=== PATIENT | female | born 1965 | race Asian ===

== ENCOUNTER 2016-04-04 08:26 | Emergency (ER) | payer OTHER ==
--- NOTE | 2016-04-04 08:51 | ECGEPIP ---
Stationary ECG Study [facility] - ED Test Date: 2016-04-04 Pat Name: MIGUELINA RDZ Department: Room: - Gender: F Nurse Assessor: gareth : 1965 Requested By: Kristan Correia Order Number: [id number] Reading MD: Caesar Renee Measurements Intervals [place] Rate: 63 P: 47 OR: 179 QRS: -31 QRSD: 91 T: 55 QT: 408 QTc: 419 Interpretive Statements SINUS RHYTHM LEFT AXIS DEVIATION NO PRIORS Electronically Signed On 04-04-2016 8:51:04 EST by Caesar Renee
[2016-04-04 08:59] LABS: BASO # 0.1 K/mm3 (0.0-0.2); BASO % 1.4 % (0.0-1.0); EOS # 0.1 K/mm3 (0.0-0.50); EOS % 2.8 % (0.0-3.0); LARGE UNSTAINED CELL # 0.2 K/mm3 (0.0-0.4); LARGE UNSTAINED CELL % 3.6 % (0.0-4.0); LYMPH # 2.3 K/mm3 (1.5-4.5); LYMPH % 45.6 % (24.0-44.0); MEAN CORPUSCULAR HEMOGLOBIN 31.3 pg (27.0-33.0); MONO # 0.2 K/mm3 (0.0-0.8); MONO % 4.6 % (0.0-5.0); NEUTROPHILS # 2.1 K/mm3 (1.8-7.7); PLATELET COUNT, AUTOMATED 288 k/mm3 (150-450); RED CELL DISTRIBUTION WIDTH 11.8 % (11.5-14.5)
--- NOTE | 2016-04-04 09:19 | REP ---
Portable chest x-ray: Single view. History: Chest pain. No comparison chest x-ray. Findings: EKG monitoring electrodes overlie the chest. Lungs are well inflated and clear. Heart size is normal. Aorta is slightly tortuous. Pulmonary vasculature is not increased. No bony abnormality is appreciated. Impression: No acute disease. Signed by Chris Vasquez MD 04/04/2016 01:41 P
[2016-04-04 09:23] LABS: ANION GAP 6 MEQ/L (8-16); BLOOD UREA NITROGEN 10 MG/DL (7-18); CALCIUM LEVEL 9.5 MG/DL (8.5-10.1); CARBON DIOXIDE LEVEL 29 MEQ/L (21-32); CHLORIDE LEVEL 111 MEQ/L (98-107); CREATININE FOR GFR 0.89 MG/DL (0.55-1.02); GLOMERULAR FILTRATION RATE > 60.0 (>51); GLUCOSE, FASTING 94 MG/DL (70-105); POTASSIUM SERUM 4.2 MEQ/L (3.5-5.1); SODIUM LEVEL 146 MEQ/L (136-145)
[2016-04-04] MEDS ORDERED: GI COCKTAIL 50ML BTL(HYOSCYAMINE/MAALOX/LIDOCAINE VISCOUS)(1:3:1) As Ordered ONE (10:54)
--- NOTE | 2016-04-04 11:48 | EDDOCDS ---
Physician Documentation [facility] Name: Jhonatan Houser Age: 50 yrs Sex: Female : 1965 Arrival Date: 04/04/2016 Time: 08:26 Bed 7 Private MD: Disposition: 04/04 10:57 I have independently interviewed and examined the patient, and I agree with the sd1 investigation, diagnosis and treatment plan as documented by the Resident. Disposition: 04/04/16 11:28 Discharged to Home/Self Care. Impression: Chest pain, unspecified. - Condition is Stable. - Medication Reconciliation, Local Pharmacy Hours form. - Follow up: Edenilson Hidalgo; When: Call to arrange an appointment; Reason: Recheck today's complaints. - Problem is new. - Symptoms are unchanged. - Notes: You were evaluated in the emergency department for chest pain. Your EKG, chest x-ray,and laboratory results were essentially within normal limits. Please follow-up with Dr. Hidalgo. Historical: - Allergies: Aspirin; - Home Meds: 1. gabapentin 300 mg Oral cap 1 cap as needed 2. hydrocodone-acetaminophen 5-325 mg Oral tab 1 tab every 4 hours - PMHx: Chronic Back pain; - PSHx: Breast Augmentation; Carpal Tunnel Repair- Right; Knee Arthroplasty, Left; back surgery; Colon Resection; - Social history: No barriers to communication noted, The patient speaks fluent [place]ian, Speaks appropriately for age, Smoking status: Patient uses tobacco products, heavy tobacco smoker. - Family history: Not pertinent. - : The pt / caregiver states he / she is not on anticoagulants. Home medication list is obtained from the patient. - Exposure Risk Screening:: None identified. 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 6 in. (167.64 cm); 08:54 Pulse 64 MON; Pulse Ox 100% ; pml 08:54 BP 148 / 81 (auto/); pml 09:09 Pulse 60 MON; Pulse Ox 98% ; pml 09:09 BP 146 / 85 (auto/); pml 09:24 Pulse 60 MON; Pulse Ox 100% ; pml 09:24 BP 145 / 87 (auto/); pml 09:39 Pulse 60 MON; Pulse Ox 100% ; pml 09:39 BP 152 / 85 (auto/); pml 09:54 Pulse 60 MON; Pulse Ox 100% ; pml 09:54 BP 145 / 87 (auto/); pml 10:17 BP 148 / 88 (auto/); pml 10:18 Pulse 66 MON; Pulse Ox 96% ; pml 10:24 Pulse 58 MON; Pulse Ox 98% ; pml 10:24 BP 137 / 89 (auto/); pml 10:39 Pulse 56 MON; Pulse Ox 96% ; pml 10:39 BP 143 / 94 (auto/); pml 10:54 Pulse 60 MON; Pulse Ox 100% ; pml 10:54 BP 138 / 87 (auto/); pml 11:09 Pulse 56 MON; Pulse Ox 97% ; pml 11:09 BP 135 / 91 (auto/); pml 11:24 Pulse 64 MON; Pulse Ox 98% ; pml 11:24 BP 165 / 98 (auto/); pml 11:39 Pulse 66 MON; Pulse Ox 96% ; pml 11:39 BP 185 / 89 (auto/); pml 11:44 BP 157 / 72; Pulse 62; Resp 18; Temp 97.1; Pulse Ox 98% on R/A; pml 08:41 Body Mass Index 24.53 (68.95 kg, 167.64 cm) [facility] MDM: 08:29 ECG WITH READING ER PHYS+CARDIAG ordered. EDMS 08:30 Copy Director/Pulse Ox/q 30 min VS ordered. sd1 08:30 IV Saline Lock ordered. sd1 08:30 Rhythm Strip to chart ordered. sd1 08:30 Undress patient appropriately for examination ordered. sd1 08:32 portable chest Ordered. EDMS 08:32 Basic Metabolic Profile Ordered. EDMS 08:32 CBC with Diff Ordered. EDMS 08:32 Cardiac Injury Profile Ordered. EDMS 08:32 Troponin Ordered. EDMS 09:20 CBC with Diff Reviewed. jo4 09:20 EKG-ADULT Reviewed. jo4 09:27 Cardiac Injury Profile Reviewed. jo4 09:27 Troponin Reviewed. jo4 09:28 Basic Metabolic Profile Reviewed. sd1 09:29 Recheck B/P ordered. sd1 09:30 D-Dimer Quant Ordered. EDMS 09:56 portable chest Reviewed. jo4 10:48 oxyCODONE-acetaminophen 5 mg-325 mg 1 tabs PO once ordered. sd1 10:51 GI Cocktail - (Alum-Mag Hydroxide-Simeth 30 ml, Lidocaine 10 ml, Hyoscyamine 10 ml) PO sd1 once; Pre-mixed 50mL unit dose ordered. 10:51 ED course: 50 yo female presents reporting constant chest pressure retrosternal x 1 sd1 week - nothing increases or decreases pain denies SOB though reports sometimes she has to take deep breaths no fever/chills no LE edema exam well appearing sleeping in ED though easily arousal ? GI etiology think cardiac less likely EKG fine trop negative less likely PE - low clinical suspicion - check d-dimer no ASA given bc allergic lungs CTAb heart RRR no murmur, rub or gallop abd benign ext without c/c/e. 10:55 D-Dimer Quant Reviewed. sd1 11:20 Financial registration complete. mm15 11:27 [facility] Payment Agreement was scanned into [employer] and attached to record. mm15 Administered Medications: 10:51 Not Given (other used): oxyCODONE-acetaminophen 5 mg-325 mg 1 tabs PO once sd1 10:56 Drug: GI Cocktail - (Alum-Mag Hydroxide-Simeth Suspension 225 mg-200 mg-25 mg/5 mL 30 pml ml, Lidocaine Liquid 2 % 10 ml, Hyoscyamine Liquid 10 ml) Route: PO; 11:10 Follow up: Response: No significant change. pml Signatures: Dispatcher [employer] EDLA Kristan Correia MD MD sd1 Brady Vines RN RN dy Quay, Paulina, RN RN pml McGrath, Marlynn mm15 Sheila Marcum DO DO jo4 The chart was reviewed and I authenticate all verbal orders and agree with the evaluation and treatment provided.Attachments: 11:27 [facility] Payment Agreement mm15 MTDD
--- NOTE | 2016-04-04 11:48 | EDDOCDS ---
Nurse's Notes [facility] Name: Miguelina Houser Age: 50 yrs Sex: Female : 1965 Arrival Date: 04/04/2016 Time: 08:26 Bed 7 Private MD: Diagnosis: Chest pain, unspecified Presentation: 04/04 08:30 Adult Sepsis Screening: The patient does not have new or worsening altered mentation. pml Patient's respiratory rate is less than 22. Systolic blood pressure is greater than 100. Patient has a qSOFA score of 0- Negative Sepsis Screen. 08:32 Presenting complaint: Patient states: chest pain for 1 week. denies SOB. denies hx of dy cardiac disorders. pain has not changed during this week. Aspirin was not taken prior to arrival. Suicide/Homicide risk assessment- the patient denies having any suicidal and/or homicidal ideations and does not present with any other emotional, behavioral or mental health complaints. 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 Transition of care: patient was not received from another setting of care. 08:32 Acuity: LEXI Level 2 dy 08:32 Method Of Arrival: Walkin/Carried/Asstd dy Triage Assessment: 11:46 HIV screening NA for this visit Offered previously. Cardiovascular: Chest pain is pml described as vague, radiates Does not radiate. episodes are intermittent began 1 week ago. HOB GRINDER: 11:46 unknown pml Historical: - Allergies: Aspirin; - Home Meds: 1. gabapentin 300 mg Oral cap 1 cap as needed 2. hydrocodone-acetaminophen 5-325 mg Oral tab 1 tab every 4 hours - PMHx: Chronic Back pain; - PSHx: Breast Augmentation; Carpal Tunnel Repair- Right; Knee Arthroplasty, Left; back surgery; Colon Resection; - Social history: No barriers to communication noted, The patient speaks fluent Malay, Speaks appropriately for age, Smoking status: Patient uses tobacco products, heavy tobacco smoker. - Family history: Not pertinent. - : The pt / caregiver states he / she is not on anticoagulants. Home medication list is obtained from the patient. - Exposure Risk Screening:: None identified. Screenin:42 Screening information is obtained from the patient. Fall risk: No risks identified. pml Assistance ADL's: requires no assistance with activities of daily living. Abuse/DV Screen: The patient / caregiver reports he/she is: not in a situation that causes fear, pain or injury. Nutritional screening: No deficits noted. Advance Directives: There is no active DNR order. home support is adequate. Assessment: 08:42 General: Appears in no apparent distress, comfortable, Behavior is appropriate for age, pml cooperative. Pain: Location: chest and headache Pain currently is 3 out of 10 on a pain scale. Pain: Quality of pain is described as heavy, pressure. Neurological: Level of Consciousness is awake, alert, Oriented to person, place, time. Cardiovascular: Capillary refill < 3 seconds Rhythm is sinus rhythm No ectopy. Respiratory: Airway is patent Respiratory effort is even, unlabored, Respiratory pattern is regular, symmetrical, Breath sounds are clear bilaterally. GI: Abdomen is non- distended. Derm: Skin is pink, warm & dry. 09:26 General: resting on stretcher, resps easy and unlabored, skin p/w/d. sinus rhythm on pml monitor. . 10:57 General: Appears in no apparent distress, Behavior is appropriate for age, cooperative. pml Pain: Location: chest Pain currently is 3 out of 10 on a pain scale. Neurological: Level of Consciousness is awake, alert, Oriented to person, place, time. Cardiovascular: Capillary refill < 3 seconds Rhythm is sinus rhythm No ectopy. Respiratory: Airway is patent Respiratory effort is even, unlabored. Derm: Skin is pink, warm & dry. 11:43 General: Appears in no apparent distress, comfortable, Behavior is appropriate for age, pml cooperative. Pain: Location: chest Pain currently is 2 out of 10 on a pain scale. Neurological: Level of Consciousness is awake, alert, Oriented to person, place, time. Cardiovascular: Capillary refill < 3 seconds. Respiratory: Airway is patent Respiratory effort is even, unlabored. Derm: Skin is pink, warm & dry. Vital Signs: 08:41 BP 190 / 110; Pulse 67; Resp 20; Temp 97.6; Pulse Ox 100% ; Weight 68.95 kg; Height 5 jlf ft. 6 in. (167.64 cm); 08:54 Pulse 64 MON; Pulse Ox 100% ; pml 08:54 BP 148 / 81 (auto/); pml 09:09 Pulse 60 MON; Pulse Ox 98% ; pml 09:09 BP 146 / 85 (auto/); pml 09:24 Pulse 60 MON; Pulse Ox 100% ; pml 09:24 BP 145 / 87 (auto/); pml 09:39 Pulse 60 MON; Pulse Ox 100% ; pml 09:39 BP 152 / 85 (auto/); pml 09:54 Pulse 60 MON; Pulse Ox 100% ; pml 09:54 BP 145 / 87 (auto/); pml 10:17 BP 148 / 88 (auto/); pml 10:18 Pulse 66 MON; Pulse Ox 96% ; pml 10:24 Pulse 58 MON; Pulse Ox 98% ; pml 10:24 BP 137 / 89 (auto/); pml 10:39 Pulse 56 MON; Pulse Ox 96% ; pml 10:39 BP 143 / 94 (auto/); pml 10:54 Pulse 60 MON; Pulse Ox 100% ; pml 10:54 BP 138 / 87 (auto/); pml 11:09 Pulse 56 MON; Pulse Ox 97% ; pml 11:09 BP 135 / 91 (auto/); pml 11:24 Pulse 64 MON; Pulse Ox 98% ; pml 11:24 BP 165 / 98 (auto/); pml 11:39 Pulse 66 MON; Pulse Ox 96% ; pml 11:39 BP 185 / 89 (auto/); pml 11:44 BP 157 / 72; Pulse 62; Resp 18; Temp 97.1; Pulse Ox 98% on R/A; pml 08:41 Body Mass Index 24.53 (68.95 kg, 167.64 cm) [facility] ED Course: 08:27 Patient visited by Veronika Marsh. mm15 08:27 Patient moved to Waiting mm15 08:28 Patient moved to 7 dy 08:33 Sheila Marcum DO is PHCP. jo4 08:33 Kristan Correia MD is Attending Physician. jo4 08:34 Triage Initiated dy 08:34 EKG done. (by ED staff). Reviewed by Kristan Correia MD. jlf 08:41 Patient visited by Raghu Abraham PCA. jlf 08:42 Patient visited by Raghu Abraham PCA. jlf 08:42 The patient / caregiver is instructed regarding the plan of care and ED course. Patient pml has correct armband on for positive identification. Placed in gown. Bed in low position. Call light in reach. Side rails up X2. teletypesetter monitor on. Pulse ox on. NIBP on. 08:42 Inserted peripheral IV: 20gauge IV in right antecubital area and blood collected. dy Patient tolerated the procedure well. 08:44 Patient visited by Lashon Cazares,CRISTY. pml 08:53 Lashon Cazares,CRISTY is Primary Nurse. jc4 09:06 EKG-ADULT Returned. EDMS 09:17 Patient visited by Raghu Abraham PCA. jlf 09:26 Patient visited by Lashon Cazares RN. pml 09:28 Patient visited by Kristan Correia MD. sd1 09:31 Patient visited by Lashon Cazares RN. pml 09:53 portable chest Returned. EDMS 09:56 Patient visited by Raghu Abraham PCA. jlf 09:57 Patient visited by Lashon Cazares RN. pml 10:57 Patient visited by Lashon Cazares,CRISTY. pml 11:27 Edenilson Hidalgo is Referral Physician. jo4 11:27 [facility] Payment Agreement was scanned into [employer] and attached to record. mm15 11:44 Discontinued lock intact, bleeding controlled, pressure dressing applied, No pml redness/swelling at site. No procedures done that require assistance. Administered Medications: 10:51 Not Given (other used): oxyCODONE-acetaminophen 5 mg-325 mg 1 tabs PO once sd1 10:56 Drug: GI Cocktail - (Alum-Mag Hydroxide-Simeth Suspension 225 mg-200 mg-25 mg/5 mL 30 pml ml, Lidocaine Liquid 2 % 10 ml, Hyoscyamine Liquid 10 ml) Route: PO; 11:10 Follow up: Response: No significant change. pml Order Results: Lab Order: Basic Metabolic Profile; SPEC'M 04/04/16 08:44 Test: GLUCOSE, FASTING; Value: 94; Range: 70-105; Units: MG/DL; Status: F Test: BLOOD UREA NITROGEN; Value: 10; Range: 7-18; Units: MG/DL; Status: F Test: CREATININE FOR GFR; Value: 0.89; Range: 0.55-1.02; Units: MG/DL; Status: F Test: GLOMERULAR FILTRATION RATE; Value: > 60.0; Range: >51; Status: F Test: SODIUM LEVEL; Value: 146; Range: 136-145; Abnormal: Above high normal; Units: MEQ/L; Status: F Test: POTASSIUM SERUM; Value: 4.2; Range: 3.5-5.1; Units: MEQ/L; Status: F Test: CHLORIDE LEVEL; Value: 111; Range: 98-107; Abnormal: Above high normal; Units: MEQ/L; Status: F Test: CARBON DIOXIDE LEVEL; Value: 29; Range: 21-32; Units: MEQ/L; Status: F Test: ANION GAP; Value: 6; Range: 8-16; Abnormal: Below low normal; Units: MEQ/L; Status: F Test: CALCIUM LEVEL; Value: 9.5; Range: 8.5-10.1; Units: MG/DL; Status: F Test Note: ; Units are mL/min/1.73 m2 Chronic Kidney Disease Staging per NKF: Stage I & II GFR >=60 Normal to Mildly Decreased Stage III GFR 30-59 Moderately Decreased Stage IV GFR 15-29 Severely Decreased Stage V GFR <15 Very Little GFR Left ESRD GFR <15 on BASE LOADER Lab Order: CBC with Diff; SPEC'M 04/04/16 08:44 Test: WHITE BLOOD COUNT; Value: 5.0; Range: 4.0-10.0; Units: K/mm3; Status: F Test: RED BLOOD COUNT; Value: 4.64; Range: 4.00-5.40; Units: M/mm3; Status: F Test: HEMOGLOBIN; Value: 14.5; Range: 12.0-16.0; Units: g/dl; Status: F Test: HEMATOCRIT; Value: 42.7; Range: 36.0-47.0; Units: %; Status: F Test: MEAN CORPUSCULAR VOLUME; Value: 92.0; Range: 80.0-96.0; Units: fl; Status: F Test: MEAN CORPUSCULAR HEMOGLOBIN; Value: 31.3; Range: 27.0-33.0; Units: pg; Status: F Test: MEAN CORPUSCULAR HGB CONC; Value: 34.0; Range: 32.0-36.5; Units: g/dl; Status: F Test: RED CELL DISTRIBUTION WIDTH; Value: 11.8; Range: 11.5-14.5; Units: %; Status: F Test: PLATELET COUNT, AUTOMATED; Value: 288; Range: 150-450; Units: k/mm3; Status: F Test: NEUTROPHILS %; Value: 42.0; Range: 36.0-66.0; Units: %; Status: F Test: LYMPH %; Value: 45.6; Range: 24.0-44.0; Abnormal: Above high normal; Units: %; Status: F Test: MONO %; Value: 4.6; Range: 0.0-5.0; Units: %; Status: F Test: EOS %; Value: 2.8; Range: 0.0-3.0; Units: %; Status: F Test: BASO %; Value: 1.4; Range: 0.0-1.0; Abnormal: Above high normal; Units: %; Status: F Test: LARGE UNSTAINED CELL %; Value: 3.6; Range: 0.0-4.0; Units: %; Status: F Test: NEUTROPHILS #; Value: 2.1; Range: 1.8-7.7; Units: K/mm3; Status: F Test: LYMPH #; Value: 2.3; Range: 1.5-4.5; Units: K/mm3; Status: F Test: MONO #; Value: 0.2; Range: 0.0-0.8; Units: K/mm3; Status: F Test: EOS #; Value: 0.1; Range: 0.0-0.50; Units: K/mm3; Status: F Test: BASO #; Value: 0.1; Range: 0.0-0.2; Units: K/mm3; Status: F Test: LARGE UNSTAINED CELL #; Value: 0.2; Range: 0.0-0.4; Units: K/mm3; Status: F Lab Order: Cardiac Injury Profile; SPEC'M 04/04/16 08:44 Test: CPK CREATINE PHOSPHOKINASE; Value: 85; Range: 26-192; Units: U/L; Status: F Test: CK-MB VALUE MASS; Value: 1.0; Range: 0.0-3.6; Units: NG/ML; Status: F Test: MB/CK RELATIVE INDEX; Value: 1.17; Range: < OR =4; Status: F Test Note: ; DIAGNOSIS CRITERIA MMB ng/ml Relative Index (RI) NON-AMI < or = 5 N/A ZONE > 5 < or = 4 AMI > 5 > 4 Lab Order: Troponin; SPEC'M 04/04/16 08:44 Test: TROPONIN I; Value: < 0.02; Range: < 0.10; Units: NG/ML; Status: F Test Note: ; Troponin I Reference Interval for [employer] [place] LOCI: 99th Percentile= 0.00-0.045 ng/ml Risk Stratification: <= 0.10 ng/ml Decreased Risk for Adverse Clinical Events. 0.10-1.50 ng/ml Increased Risk for Adverse Clinical Events. Evaluation of additional criterion and/or repeat testing in 2-6 hours is suggested to rule out myocardial damage. >= 1.50 ng/ml Indicative of Myocardial Injury. Lab Order: D-Dimer Quant; SPEC'M 04/04/16 10:15 Test: D-DIMER QUANT; Value: < 270.0; Range: <500; Units: ng/ml; Status: F Radiology Order: EKG-ADULT Test: EKG-ADULT REASON FOR EXAMINATION: Chest Pain; Stationary ECG Study; [facility] - ED; ; Test Date: 2016-04-04; Pat Name: MIGUELINA HOUSER Department:; Room: -; Gender: F Intensivist: gareth; : 1965 Requested By: Kristan Correia; Order Number: [id number] Reading MD: Caesar Renee; Measurements; Intervals [place]; Rate: 63 P: 47; NE: 179 QRS: -31; QRSD: 91 T: 55; QT: 408; QTc: 419; Interpretive Statements; SINUS RHYTHM; LEFT AXIS DEVIATION; NO PRIORS; Electronically Signed On 04-04-2016 8:51:04 EST by Caesar Renee; Radiology Order: portable chest Test: portable chest REASON FOR EXAMINATION: Chest Pain; Portable chest x-ray: Single view.; ; History: Chest pain. No comparison chest x-ray.; ; Findings: EKG monitoring electrodes overlie the chest. Lungs are well inflated; and clear. Heart size is normal. Aorta is slightly tortuous. Pulmonary; vasculature is not increased. No bony abnormality is appreciated.; ; Impression:; ; No acute disease.; ; ; ; ; Unreviewed; Outcome: 11:28 Discharge ordered by Provider. jo4 11:44 Discharge Assessment: Patient awake, alert and oriented x 3. No cognitive and/or pml functional deficits noted. Patient verbalized understanding of disposition instructions. patient administered narcotics - no. The following High Risk Discharge criteria are identified: None. Discharged to home ambulatory. Condition: good Condition: stable. Discharge instructions given to patient, Instructed on discharge instructions, follow up and referral plans. Demonstrated understanding of instructions, Pt was receptive of discharge instructions/ teaching. No special radiology studies were completed. Property sent home with patient. 11:46 Patient left the ED. pml Signatures: Dispatcher [employer] EDMS Kristan Correia MD MD sd1 Brady Vines RN RN Mirna Squires RN RN jc4 Lashon Cazares RN RN pml Veronika Marsh mm15 Raghu Abraham, GILBERT SENIOR CLIENT ADVISOR hannahf Sheila Marcum DO DO jo4 Corrections: (The following items were deleted from the chart) 08:47 08:42 Inserted peripheral IV: 20gauge IV in right antecubital area and blood collected. dy Patient tolerated the procedure well. pml MTDD
--- NOTE | 2016-04-06 12:47 | EDDOCDS ---
Physician Documentation [facility] Name: Jhonatan Houser Age: 50 yrs Sex: Female : 1965 Arrival Date: 04/04/2016 Time: 08:26 Bed 7 Private MD: Disposition: 04/04 10:57 I have independently interviewed and examined the patient, and I agree with the sd1 investigation, diagnosis and treatment plan as documented by the Resident. Disposition: 04/04/16 11:28 Discharged to Home/Self Care. Impression: Chest pain, unspecified. - Condition is Stable. - Medication Reconciliation, Local Pharmacy Hours form. - Follow up: Edenilson Hidalgo; When: Call to arrange an appointment; Reason: Recheck today's complaints. - Problem is new. - Symptoms are unchanged. - Notes: You were evaluated in the emergency department for chest pain. Your EKG, chest x-ray,and laboratory results were essentially within normal limits. Please follow-up with Dr. Hidalgo. Historical: - Allergies: Aspirin; - Home Meds: 1. gabapentin 300 mg Oral cap 1 cap as needed 2. hydrocodone-acetaminophen 5-325 mg Oral tab 1 tab every 4 hours - PMHx: Chronic Back pain; - PSHx: Breast Augmentation; Carpal Tunnel Repair- Right; Knee Arthroplasty, Left; back surgery; Colon Resection; - Social history: No barriers to communication noted, The patient speaks fluent Ivorian, Speaks appropriately for age, Smoking status: Patient uses tobacco products, heavy tobacco smoker. - Family history: Not pertinent. - : The pt / caregiver states he / she is not on anticoagulants. Home medication list is obtained from the patient. - Exposure Risk Screening:: None identified. 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 6 in. (167.64 cm); 08:54 Pulse 64 MON; Pulse Ox 100% ; pml 08:54 BP 148 / 81 (auto/); pml 09:09 Pulse 60 MON; Pulse Ox 98% ; pml 09:09 BP 146 / 85 (auto/); pml 09:24 Pulse 60 MON; Pulse Ox 100% ; pml 09:24 BP 145 / 87 (auto/); pml 09:39 Pulse 60 MON; Pulse Ox 100% ; pml 09:39 BP 152 / 85 (auto/); pml 09:54 Pulse 60 MON; Pulse Ox 100% ; pml 09:54 BP 145 / 87 (auto/); pml 10:17 BP 148 / 88 (auto/); pml 10:18 Pulse 66 MON; Pulse Ox 96% ; pml 10:24 Pulse 58 MON; Pulse Ox 98% ; pml 10:24 BP 137 / 89 (auto/); pml 10:39 Pulse 56 MON; Pulse Ox 96% ; pml 10:39 BP 143 / 94 (auto/); pml 10:54 Pulse 60 MON; Pulse Ox 100% ; pml 10:54 BP 138 / 87 (auto/); pml 11:09 Pulse 56 MON; Pulse Ox 97% ; pml 11:09 BP 135 / 91 (auto/); pml 11:24 Pulse 64 MON; Pulse Ox 98% ; pml 11:24 BP 165 / 98 (auto/); pml 11:39 Pulse 66 MON; Pulse Ox 96% ; pml 11:39 BP 185 / 89 (auto/); pml 11:44 BP 157 / 72; Pulse 62; Resp 18; Temp 97.1; Pulse Ox 98% on R/A; pml 08:41 Body Mass Index 24.53 (68.95 kg, 167.64 cm) [facility] MDM: 08:29 ECG WITH READING ER PHYS+CARDIAG ordered. EDMS 08:30 Foreign Clerk/Pulse Ox/q 30 min VS ordered. sd1 08:30 IV Saline Lock ordered. sd1 08:30 Rhythm Strip to chart ordered. sd1 08:30 Undress patient appropriately for examination ordered. sd1 08:32 portable chest Ordered. EDMS 08:32 Basic Metabolic Profile Ordered. EDMS 08:32 CBC with Diff Ordered. EDMS 08:32 Cardiac Injury Profile Ordered. EDMS 08:32 Troponin Ordered. EDMS 09:20 CBC with Diff Reviewed. jo4 09:20 EKG-ADULT Reviewed. jo4 09:27 Cardiac Injury Profile Reviewed. jo4 09:27 Troponin Reviewed. jo4 09:28 Basic Metabolic Profile Reviewed. sd1 09:29 Recheck B/P ordered. sd1 09:30 D-Dimer Quant Ordered. EDMS 09:56 portable chest Reviewed. jo4 10:48 oxyCODONE-acetaminophen 5 mg-325 mg 1 tabs PO once ordered. sd1 10:51 GI Cocktail - (Alum-Mag Hydroxide-Simeth 30 ml, Lidocaine 10 ml, Hyoscyamine 10 ml) PO sd1 once; Pre-mixed 50mL unit dose ordered. 10:51 ED course: 50 yo female presents reporting constant chest pressure retrosternal x 1 sd1 week - nothing increases or decreases pain denies SOB though reports sometimes she has to take deep breaths no fever/chills no LE edema exam well appearing sleeping in ED though easily arousal ? GI etiology think cardiac less likely EKG fine trop negative less likely PE - low clinical suspicion - check d-dimer no ASA given bc allergic lungs CTAb heart RRR no murmur, rub or gallop abd benign ext without c/c/e. 10:55 D-Dimer Quant Reviewed. sd1 11:20 Financial registration complete. mm15 : [facility] Payment Agreement was scanned into [employer] and attached to record. mm 14:18 T-Sheet-- Draft Copy was scanned into [employer] and attached to record. gb 14:18 Trend VS was scanned into [employer] and attached to record. gb Administered Medications: 10:51 Not Given (other used): oxyCODONE-acetaminophen 5 mg-325 mg 1 tabs PO once sd1 10:56 Drug: GI Cocktail - (Alum-Mag Hydroxide-Simeth Suspension 225 mg-200 mg-25 mg/5 mL 30 pml ml, Lidocaine Liquid 2 % 10 ml, Hyoscyamine Liquid 10 ml) Route: PO; 11:10 Follow up: Response: No significant change. pml Signatures: Dispatcher [employer] EDMS Kristan Correia MD MD sd1 Annita Aldridge, Reg Reg gb Brady Vines RN Lashon Dunaway RN RN pml Veronika Marsh mm15 Sheila Marcum DO DO jo4 The chart was reviewed and I authenticate all verbal orders and agree with the evaluation and treatment provided.Attachments: [facility] Payment Agreement mm15 14:18 T-Sheet-- Draft Copy gb Chart Complete MTDD
--- NOTE | 2016-04-06 12:47 | EDDOCDS ---
Phys[facility] Documentation [facility] Name: Jhonatan Houser Age: 50 yrs Sex: Female : 1965 Arrival Date: 04/04/2016 Time: 08:26 Bed 7 Private MD: Disposition: 04/04 10:57 I have independently interviewed and examined the patient, and I agree with the sd1 investigation, diagnosis and treatment plan as documented by the Resident. Disposition: 04/04/16 11:28 Discharged to Home/Self Care. Impression: Chest pain, unspecified. - Condition is Stable. - Medication Reconciliation, Local Pharmacy Hours form. - Follow up: Edenilson Hidalgo; When: Call to arrange an appointment; Reason: Recheck today's complaints. - Problem is new. - Symptoms are unchanged. - Notes: You were evaluated in the emergency department for chest pain. Your EKG, chest x-ray,and laboratory results were essentially within normal limits. Please follow-up with Dr. Hidalgo. Historical: - Allergies: Aspirin; - Home Meds: 1. gabapentin 300 mg Oral cap 1 cap as needed 2. hydrocodone-acetaminophen 5-325 mg Oral tab 1 tab every 4 hours - PMHx: Chronic Back pain; - PSHx: Breast Augmentation; Carpal Tunnel Repair- Right; Knee Arthroplasty, Left; back surgery; Colon Resection; - Social history: No barriers to communication noted, The patient speaks fluent Ecuadorean, Speaks appropriately for age, Smoking status: Patient uses tobacco products, heavy tobacco smoker. - Family history: Not pertinent. - : The pt / caregiver states he / she is not on anticoagulants. Home medication list is obtained from the patient. - Exposure Risk Screening:: None identified. 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 6 in. (167.64 cm); 08:54 Pulse 64 MON; Pulse Ox 100% ; pml 08:54 BP 148 / 81 (auto/); pml 09:09 Pulse 60 MON; Pulse Ox 98% ; pml 09:09 BP 146 / 85 (auto/); pml 09:24 Pulse 60 MON; Pulse Ox 100% ; pml 09:24 BP 145 / 87 (auto/); pml 09:39 Pulse 60 MON; Pulse Ox 100% ; pml 09:39 BP 152 / 85 (auto/); pml 09:54 Pulse 60 MON; Pulse Ox 100% ; pml 09:54 BP 145 / 87 (auto/); pml 10:17 BP 148 / 88 (auto/); pml 10:18 Pulse 66 MON; Pulse Ox 96% ; pml 10:24 Pulse 58 MON; Pulse Ox 98% ; pml 10:24 BP 137 / 89 (auto/); pml 10:39 Pulse 56 MON; Pulse Ox 96% ; pml 10:39 BP 143 / 94 (auto/); pml 10:54 Pulse 60 MON; Pulse Ox 100% ; pml 10:54 BP 138 / 87 (auto/); pml 11:09 Pulse 56 MON; Pulse Ox 97% ; pml 11:09 BP 135 / 91 (auto/); pml 11:24 Pulse 64 MON; Pulse Ox 98% ; pml 11:24 BP 165 / 98 (auto/); pml 11:39 Pulse 66 MON; Pulse Ox 96% ; pml 11:39 BP 185 / 89 (auto/); pml 11:44 BP 157 / 72; Pulse 62; Resp 18; Temp 97.1; Pulse Ox 98% on R/A; pml 08:41 Body Mass Index 24.53 (68.95 kg, 167.64 cm) [facility] MDM: 08:29 ECG WITH READING ER PHYS+CARDIAG ordered. EDMS 08:30 Emery Grinder/Pulse Ox/q 30 min VS ordered. sd1 08:30 IV Saline Lock ordered. sd1 08:30 Rhythm Strip to chart ordered. sd1 08:30 Undress patient appropriately for examination ordered. sd1 08:32 portable chest Ordered. EDMS 08:32 Basic Metabolic Profile Ordered. EDMS 08:32 CBC with Diff Ordered. EDMS 08:32 Cardiac Injury Profile Ordered. EDMS 08:32 Troponin Ordered. EDMS 09:20 CBC with Diff Reviewed. jo4 09:20 EKG-ADULT Reviewed. jo4 09:27 Cardiac Injury Profile Reviewed. jo4 09:27 Troponin Reviewed. jo4 09:28 Basic Metabolic Profile Reviewed. sd1 09:29 Recheck B/P ordered. sd1 09:30 D-Dimer Quant Ordered. EDMS 09:56 portable chest Reviewed. jo4 10:48 oxyCODONE-acetaminophen 5 mg-325 mg 1 tabs PO once ordered. sd1 10:51 GI Cocktail - (Alum-Mag Hydroxide-Simeth 30 ml, Lidocaine 10 ml, Hyoscyamine 10 ml) PO sd1 once; Pre-mixed 50mL unit dose ordered. 10:51 ED course: 50 yo female presents reporting constant chest pressure retrosternal x 1 sd1 week - nothing increases or decreases pain denies SOB though reports sometimes she has to take deep breaths no fever/chills no LE edema exam well appearing sleeping in ED though easily arousal ? GI etiology think cardiac less likely EKG fine trop negative less likely PE - low clinical suspicion - check d-dimer no ASA given bc allergic lungs CTAb heart RRR no murmur, rub or gallop abd benign ext without c/c/e. 10:55 D-Dimer Quant Reviewed. sd1 11:20 Financial registration complete. mm15 : [facility] Payment Agreement was scanned into [employer] and attached to record. mm 14:18 T-Sheet-- Draft Copy was scanned into [employer] and attached to record. gb 14:18 Trend VS was scanned into [employer] and attached to record. gb Administered Medications: 10:51 Not Given (other used): oxyCODONE-acetaminophen 5 mg-325 mg 1 tabs PO once sd1 10:56 Drug: GI Cocktail - (Alum-Mag Hydroxide-Simeth Suspension 225 mg-200 mg-25 mg/5 mL 30 pml ml, Lidocaine Liquid 2 % 10 ml, Hyoscyamine Liquid 10 ml) Route: PO; 11:10 Follow up: Response: No significant change. pml Signatures: Dispatcher [employer] EDMS Kristan Correia MD MD sd1 Annita Aldridge, Reg Reg gb Brady Vines RN Lashon Dunaway RN RN pml Veronika Marsh mm15 Sheila Marcum DO DO jo4 The chart was reviewed and I authenticate all verbal orders and agree with the evaluation and treatment provided.Attachments: [facility] Payment Agreement mm15 14:18 T-Sheet-- Draft Copy gb Chart Complete MTDD
--- NOTE | 2016-04-06 12:47 | EDDOCDS ---
Nurse's Notes [facility] Name: Miguelina Houser Age: 50 yrs Sex: Female : 1965 Arrival Date: 04/04/2016 Time: 08:26 Bed 7 Private MD: Diagnosis: Chest pain, unspecified Presentation: 04/04 08:30 Adult Sepsis Screening: The patient does not have new or worsening altered mentation. pml Patient's respiratory rate is less than 22. Systolic blood pressure is greater than 100. Patient has a qSOFA score of 0- Negative Sepsis Screen. 08:32 Presenting complaint: Patient states: chest pain for 1 week. denies SOB. denies hx of dy cardiac disorders. pain has not changed during this week. Aspirin was not taken prior to arrival. Suicide/Homicide risk assessment- the patient denies having any suicidal and/or homicidal ideations and does not present with any other emotional, behavioral or mental health complaints. Status: Patient is not a human services manager or dependent. Transition of care: patient was not received from another setting of care. 08:32 Acuity: LEXI Level 2 dy 08:32 Method Of Arrival: Walkin/Carried/Asstd dy Triage Assessment: 11:46 HIV screening NA for this visit Offered previously. Cardiovascular: Chest pain is pml described as vague, radiates Does not radiate. episodes are intermittent began 1 week ago. 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 gabapentin 300 mg Oral cap 1 cap as needed 2. hydrocodone-acetaminophen 5-325 mg Oral tab 1 tab every 4 hours - PMHx: Chronic Back pain; - PSHx: Breast Augmentation; Carpal Tunnel Repair- Right; Knee Arthroplasty, Left; back surgery; Colon Resection; - Social history: No barriers to communication noted, The patient speaks fluent Telugu, Speaks appropriately for age, Smoking status: Patient uses tobacco products, heavy tobacco smoker. - Family history: Not pertinent. - : The pt / caregiver states he / she is not on anticoagulants. Home medication list is obtained from the patient. - Exposure Risk Screening:: None identified. Screenin:42 Screening information is obtained from the patient. Fall risk: No risks identified. pml Assistance ADL's: requires no assistance with activities of daily living. Abuse/DV Screen: The patient / caregiver reports he/she is: not in a situation that causes fear, pain or injury. Nutritional screening: No deficits noted. Advance Directives: There is no active DNR order. home support is adequate. Assessment: 08:42 General: Appears in no apparent distress, comfortable, Behavior is appropriate for age, pml cooperative. Pain: Location: chest and headache Pain currently is 3 out of 10 on a pain scale. Pain: Quality of pain is described as heavy, pressure. Neurological: Level of Consciousness is awake, alert, Oriented to person, place, time. Cardiovascular: Capillary refill < 3 seconds Rhythm is sinus rhythm No ectopy. Respiratory: Airway is patent Respiratory effort is even, unlabored, Respiratory pattern is regular, symmetrical, Breath sounds are clear bilaterally. GI: Abdomen is non- distended. Derm: Skin is pink, warm & dry. 09:26 General: resting on stretcher, resps easy and unlabored, skin p/w/d. sinus rhythm on pml monitor. . 10:57 General: Appears in no apparent distress, Behavior is appropriate for age, cooperative. pml Pain: Location: chest Pain currently is 3 out of 10 on a pain scale. Neurological: Level of Consciousness is awake, alert, Oriented to person, place, time. Cardiovascular: Capillary refill < 3 seconds Rhythm is sinus rhythm No ectopy. Respiratory: Airway is patent Respiratory effort is even, unlabored. Derm: Skin is pink, warm & dry. 11:43 General: Appears in no apparent distress, comfortable, Behavior is appropriate for age, pml cooperative. Pain: Location: chest Pain currently is 2 out of 10 on a pain scale. Neurological: Level of Consciousness is awake, alert, Oriented to person, place, time. Cardiovascular: Capillary refill < 3 seconds. Respiratory: Airway is patent Respiratory effort is even, unlabored. Derm: Skin is pink, warm & dry. Vital Signs: 08:41 BP 190 / 110; Pulse 67; Resp 20; Temp 97.6; Pulse Ox 100% ; Weight 68.95 kg; Height 5 jlf ft. 6 in. (167.64 cm); 08:54 Pulse 64 MON; Pulse Ox 100% ; pml 08:54 BP 148 / 81 (auto/); pml 09:09 Pulse 60 MON; Pulse Ox 98% ; pml 09:09 BP 146 / 85 (auto/); pml 09:24 Pulse 60 MON; Pulse Ox 100% ; pml 09:24 BP 145 / 87 (auto/); pml 09:39 Pulse 60 MON; Pulse Ox 100% ; pml 09:39 BP 152 / 85 (auto/); pml 09:54 Pulse 60 MON; Pulse Ox 100% ; pml 09:54 BP 145 / 87 (auto/); pml 10:17 BP 148 / 88 (auto/); pml 10:18 Pulse 66 MON; Pulse Ox 96% ; pml 10:24 Pulse 58 MON; Pulse Ox 98% ; pml 10:24 BP 137 / 89 (auto/); pml 10:39 Pulse 56 MON; Pulse Ox 96% ; pml 10:39 BP 143 / 94 (auto/); pml 10:54 Pulse 60 MON; Pulse Ox 100% ; pml 10:54 BP 138 / 87 (auto/); pml 11:09 Pulse 56 MON; Pulse Ox 97% ; pml 11:09 BP 135 / 91 (auto/); pml 11:24 Pulse 64 MON; Pulse Ox 98% ; pml 11:24 BP 165 / 98 (auto/); pml 11:39 Pulse 66 MON; Pulse Ox 96% ; pml 11:39 BP 185 / 89 (auto/); pml 11:44 BP 157 / 72; Pulse 62; Resp 18; Temp 97.1; Pulse Ox 98% on R/A; pml 08:41 Body Mass Index 24.53 (68.95 kg, 167.64 cm) [facility] ED Course: 08:27 Patient visited by Veronika Marsh. mm15 08:27 Patient moved to Waiting mm15 08:28 Patient moved to 7 dy 08:33 Sheila Marcum DO is PHCP. jo4 08:33 Kristan Correia MD is Attending Physician. jo4 08:34 Triage Initiated dy 08:34 EKG done. (by ED staff). Reviewed by Kristan Correia MD. jlf 08:41 Patient visited by Raghu Abraham PCA. jlf 08:42 Patient visited by Raghu Abraham PCA. jlf 08:42 The patient / caregiver is instructed regarding the plan of care and ED course. Patient pml has correct armband on for positive identification. Placed in gown. Bed in low position. Call light in reach. Side rails up X2. quality assurance monitor on. Pulse ox on. NIBP on. 08:42 Inserted peripheral IV: 20gauge IV in right antecubital area and blood collected. dy Patient tolerated the procedure well. 08:44 Patient visited by Lashon Cazares,CRISTY. pml 08:53 Lashon Cazares,RN is Primary Nurse. jc4 09:06 EKG-ADULT Returned. EDMS 09:17 Patient visited by Raghu Abraham PCA. jlf 09:26 Patient visited by Lashon Cazares RN. pml 09:28 Patient visited by Kristan Correia MD. sd1 09:31 Patient visited by Lashon Cazares,CRISTY. pml 09:53 portable chest Returned. EDMS 09:56 Patient visited by Raghu Abraham PCA. jlf 09:57 Patient visited by Lashon Cazares,CRISTY. pml 10:57 Patient visited by Lashon Cazares,CRISTY. pml 11:27 Edenilson Hidalgo is Referral Physician. jo4 11:27 [facility] Payment Agreement was scanned into [employer] and attached to record. mm15 11:44 Discontinued lock intact, bleeding controlled, pressure dressing applied, No pml redness/swelling at site. No procedures done that require assistance. 12:38 Patient name changed from [place]S\S\[place]\S\ to [place]\S\[place]\S\[place]. EDMS 13:47 portable chest Returned. EDMS 14:18 T-Sheet-- Draft Copy was scanned into [employer] and attached to record. gb 14:18 Trend VS was scanned into [employer] and attached to record. gb Administered Medications: 10:51 Not Given (other used): oxyCODONE-acetaminophen 5 mg-325 mg 1 tabs PO once sd1 10:56 Drug: GI Cocktail - (Alum-Mag Hydroxide-Simeth Suspension 225 mg-200 mg-25 mg/5 mL 30 pml ml, Lidocaine Liquid 2 % 10 ml, Hyoscyamine Liquid 10 ml) Route: PO; 11:10 Follow up: Response: No significant change. pml Attachments: 14:18 Trend VS gb Order Results: Lab Order: Basic Metabolic Profile; SPEC'M 04/04/16 08:44 Test: GLUCOSE, FASTING; Value: 94; Range: 70-105; Units: MG/DL; Status: F Test: BLOOD UREA NITROGEN; Value: 10; Range: 7-18; Units: MG/DL; Status: F Test: CREATININE FOR GFR; Value: 0.89; Range: 0.55-1.02; Units: MG/DL; Status: F Test: GLOMERULAR FILTRATION RATE; Value: > 60.0; Range: >51; Status: F Test: SODIUM LEVEL; Value: 146; Range: 136-145; Abnormal: Above high normal; Units: MEQ/L; Status: F Test: POTASSIUM SERUM; Value: 4.2; Range: 3.5-5.1; Units: MEQ/L; Status: F Test: CHLORIDE LEVEL; Value: 111; Range: 98-107; Abnormal: Above high normal; Units: MEQ/L; Status: F Test: CARBON DIOXIDE LEVEL; Value: 29; Range: 21-32; Units: MEQ/L; Status: F Test: ANION GAP; Value: 6; Range: 8-16; Abnormal: Below low normal; Units: MEQ/L; Status: F Test: CALCIUM LEVEL; Value: 9.5; Range: 8.5-10.1; Units: MG/DL; Status: F Test Note: ; Units are mL/min/1.73 m2 Chronic Kidney Disease Staging per NKF: Stage I & II GFR >=60 Normal to Mildly Decreased Stage III GFR 30-59 Moderately Decreased Stage IV GFR 15-29 Severely Decreased Stage V GFR <15 Very Little GFR Left ESRD GFR <15 on TAX SERVICES SPECIALIST Lab Order: CBC with Diff; SPEC'M 04/04/16 08:44 Test: WHITE BLOOD COUNT; Value: 5.0; Range: 4.0-10.0; Units: K/mm3; Status: F Test: RED BLOOD COUNT; Value: 4.64; Range: 4.00-5.40; Units: M/mm3; Status: F Test: HEMOGLOBIN; Value: 14.5; Range: 12.0-16.0; Units: g/dl; Status: F Test: HEMATOCRIT; Value: 42.7; Range: 36.0-47.0; Units: %; Status: F Test: MEAN CORPUSCULAR VOLUME; Value: 92.0; Range: 80.0-96.0; Units: fl; Status: F Test: MEAN CORPUSCULAR HEMOGLOBIN; Value: 31.3; Range: 27.0-33.0; Units: pg; Status: F Test: MEAN CORPUSCULAR HGB CONC; Value: 34.0; Range: 32.0-36.5; Units: g/dl; Status: F Test: RED CELL DISTRIBUTION WIDTH; Value: 11.8; Range: 11.5-14.5; Units: %; Status: F Test: PLATELET COUNT, AUTOMATED; Value: 288; Range: 150-450; Units: k/mm3; Status: F Test: NEUTROPHILS %; Value: 42.0; Range: 36.0-66.0; Units: %; Status: F Test: LYMPH %; Value: 45.6; Range: 24.0-44.0; Abnormal: Above high normal; Units: %; Status: F Test: MONO %; Value: 4.6; Range: 0.0-5.0; Units: %; Status: F Test: EOS %; Value: 2.8; Range: 0.0-3.0; Units: %; Status: F Test: BASO %; Value: 1.4; Range: 0.0-1.0; Abnormal: Above high normal; Units: %; Status: F Test: LARGE UNSTAINED CELL %; Value: 3.6; Range: 0.0-4.0; Units: %; Status: F Test: NEUTROPHILS #; Value: 2.1; Range: 1.8-7.7; Units: K/mm3; Status: F Test: LYMPH #; Value: 2.3; Range: 1.5-4.5; Units: K/mm3; Status: F Test: MONO #; Value: 0.2; Range: 0.0-0.8; Units: K/mm3; Status: F Test: EOS #; Value: 0.1; Range: 0.0-0.50; Units: K/mm3; Status: F Test: BASO #; Value: 0.1; Range: 0.0-0.2; Units: K/mm3; Status: F Test: LARGE UNSTAINED CELL #; Value: 0.2; Range: 0.0-0.4; Units: K/mm3; Status: F Lab Order: Cardiac Injury Profile; SPEC'M 04/04/16 08:44 Test: CPK CREATINE PHOSPHOKINASE; Value: 85; Range: 26-192; Units: U/L; Status: F Test: CK-MB VALUE MASS; Value: 1.0; Range: 0.0-3.6; Units: NG/ML; Status: F Test: MB/CK RELATIVE INDEX; Value: 1.17; Range: < OR =4; Status: F Test Note: ; DIAGNOSIS CRITERIA MMB ng/ml Relative Index (RI) NON-AMI < or = 5 N/A ZONE > 5 < or = 4 AMI > 5 > 4 Lab Order: Troponin; SPEC'M 04/04/16 08:44 Test: TROPONIN I; Value: < 0.02; Range: < 0.10; Units: NG/ML; Status: F Test Note: ; Troponin I Reference Interval for [employer] LOCI: 99th Percentile= 0.00-0.045 ng/ml Risk Stratification: <= 0.10 ng/ml Decreased Risk for Adverse Clinical Events. 0.10-1.50 ng/ml Increased Risk for Adverse Clinical Events. Evaluation of additional criterion and/or repeat testing in 2-6 hours is suggested to rule out myocardial damage. >= 1.50 ng/ml Indicative of Myocardial Injury. Lab Order: D-Dimer Quant; SPEC'M 04/04/16 10:15 Test: D-DIMER QUANT; Value: < 270.0; Range: <500; Units: ng/ml; Status: F Radiology Order: EKG-ADULT Test: EKG-ADULT REASON FOR EXAMINATION: Chest Pain; Stationary ECG Study; [facility] - ED; ; Test Date: 2016-04-04; Pat Name: MIGUELINA HOUSER Department:; Room: -; Gender: F [employer] Worker: gareth; : 1965 Requested By: Kristan Correia; Order Number: [id number] Reading MD: Caesar eRnee; Measurements; Intervals Marshall; Rate: 63 P: 47; UT: 179 QRS: -31; QRSD: 91 T: 55; QT: 408; QTc: 419; Interpretive Statements; SINUS RHYTHM; LEFT AXIS DEVIATION; NO PRIORS; Electronically Signed On 04-04-2016 8:51:04 EST by Caesar Renee; Radiology Order: portable chest Test: portable chest REASON FOR EXAMINATION: Chest Pain; Portable chest x-ray: Single view.; ; History: Chest pain. No comparison chest x-ray.; ; Findings: EKG monitoring electrodes overlie the chest. Lungs are well inflated; and clear. Heart size is normal. Aorta is slightly tortuous. Pulmonary; vasculature is not increased. No bony abnormality is appreciated.; ; Impression:; ; No acute disease.; ; ; Signed by; Chris Vasquez MD 04/04/2016 01:41 P; Outcome: 11:28 Discharge ordered by Provider. jo4 11:44 Discharge Assessment: Patient awake, alert and oriented x 3. No cognitive and/or pml functional deficits noted. Patient verbalized understanding of disposition instructions. patient administered narcotics - no. The following High Risk Discharge criteria are identified: None. Discharged to home ambulatory. Condition: good Condition: stable. Discharge instructions given to patient, Instructed on discharge instructions, follow up and referral plans. Demonstrated understanding of instructions, Pt was receptive of discharge instructions/ teaching. No special radiology studies were completed. Property sent home with patient. 11:46 Patient left the ED. pml Signatures: Dispatcher [employer] EDMS Kristan Correia MD MD sd1 Annita Aldridge, Reg Reg gb Brady Vines RN Mirna Payne RN RN jc4 Quay, Paulina, RN RN pml McGrath, Marlynn mm15 Raghu Abraahm, [employer] jlf Sheila Marcum, DO VERA jo4 Corrections: (The following items were deleted from the chart) 08:47 08:42 Inserted peripheral IV: 20gauge IV in right antecubital area and blood collected. dy Patient tolerated the procedure well. pml Chart Complete MTDD
== END 2016-04-04 11:46 | disposition home or self-care (01) ==
LOC: M ED 08:26
DX: R07.9 Chest pain, unspecified (principal); M54.9 Dorsalgia, unspecified; Z79.899 Other long term (current) drug therapy; Z88.6 Allergy status to analgesic agent; F17.210 Nicotine dependence, cigarettes, uncomplicated

== ENCOUNTER 2017-06-17 08:58 | Day surgery (SDC) | payer OTHER ==
[2017-06-17] MEDS: NS 1,000 ML IV (09:21)
[2017-06-17] MEDS ORDERED: LIDOCAINE 2% INJ 100 MG/5 ML SDV (FOR ANES.) As Ordered (11:25)
[2017-06-17] MEDS ORDERED: PROPOFOL 200 MG/20 ML VIAL As Ordered (11:25)
== END 2017-06-17 12:17 | disposition home or self-care (01) ==
LOC: M OPP 08:58
DX: Z12.11 Encounter for screening for malignant neoplasm of colon (principal); K63.5 Polyp of colon; K64.9 Unspecified hemorrhoids; F32.9 Major depressive disorder, single episode, unspecified; F41.9 Anxiety disorder, unspecified; F17.210 Nicotine dependence, cigarettes, uncomplicated; M12.9 Arthropathy, unspecified; Z79.891 Long term (current) use of opiate analgesic; Z79.899 Other long term (current) drug therapy; Z88.0 Allergy status to penicillin; Z88.5 Allergy status to narcotic agent; Z88.8 Allergy status to other drugs, medicaments and biological substances; Z83.3 Family history of diabetes mellitus; Z80.49 Family history of malignant neoplasm of other genital organs; Z90.49 Acquired absence of other specified parts of digestive tract; Z98.82 Breast implant status; Z90.710 Acquired absence of both cervix and uterus
CPT/HCPCS: 45380

== ENCOUNTER 2018-07-24 13:40 | Emergency (ER) | payer OTHER ==
[~2018-07-24] VITALS: Ht 165.1 cm; Wt 70.4 kg
[~2018-07-24 13:40] MED LIST: HYDR-4517 PO
[2018-07-24 13:48] VITALS: BP 168/101
[2018-07-24] MEDS ORDERED: IBUP200C25 PO (13:53)
[2018-07-24] MEDS ORDERED: CLEO300C2 PO ×2 (14:03)
== END 2018-07-24 14:20 | disposition home or self-care (01) ==
LOC: M ED 13:40
DX: K04.7 Periapical abscess without sinus (principal); Z88.8 Allergy status to other drugs, medicaments and biological substances; Z88.5 Allergy status to narcotic agent

== ENCOUNTER 2019-09-05 09:39 | Emergency (ER) | payer OTHER ==
[~2019-09-05] VITALS: Ht 170.2 cm; Wt 71.4 kg
[~2019-09-05 09:39] MED LIST changes: +CLEO300C2 PO; +IBUP200C25 PO
[2019-09-05] MEDS ORDERED: ATOR1TAB21 (09:48)
[2019-09-05] MEDS ORDERED: NALO25TA (09:48)
[2019-09-05] MEDS ORDERED: METF500T13 (09:48)
[2019-09-05] MEDS ORDERED: LISI-538 (09:48)
[2019-09-05] MEDS ORDERED: CELE1CAP7 (09:48)
[2019-09-05] MEDS ORDERED: HYDR-3719 (09:48)
[2019-09-05 10:17] LABS: BASO % 0.3 % (0.0-1.0); EOS % 0.3 % (0.0-3.0); HEMATOCRIT 43.8 % (36.0-47.0); HEMOGLOBIN 14.4 g/dl (12.0-15.5); LYMPH # 2.4 10^3/uL (1.5-5.0); MEAN CORPUSCULAR HEMOGLOBIN 30.2 pg (27.0-33.0); MEAN CORPUSCULAR HGB CONC 32.9 g/dl (32.0-36.5); MEAN CORPUSCULAR VOLUME 91.8 fl (80.0-96.0); MONO # 0.7 10^3/uL (0.0-0.8); MONO % 5.8 % (0.0-5.0); NEUTROPHILS # 8.7 10^3/uL (1.5-8.5); NEUTROPHILS % 73.3 % (36.0-66.0); PLATELET COUNT, AUTOMATED 286 10^3/uL (150-450); RED BLOOD COUNT 4.77 10^6/uL (4.00-5.40); WHITE BLOOD COUNT 11.9 10^3/uL (4.0-10.0)
[2019-09-05 10:39] LABS: ALBUMIN 4.5 GM/DL (3.2-5.2); ALT/SGPT 21 U/L (12-78); BILIRUBIN,DIRECT 0.2 MG/DL (0.0-0.2); BLOOD UREA NITROGEN 13 MG/DL (7-18); CALCIUM LEVEL 9.6 MG/DL (8.5-10.1); CARBON DIOXIDE LEVEL 26 MEQ/L (21-32); CHLORIDE LEVEL 108 MEQ/L (98-107); GLOMERULAR FILTRATION RATE > 60.0 (>51); GLUCOSE, FASTING 118 MG/DL (70-100); LIPASE 143 U/L (73-393); POTASSIUM SERUM 3.9 MEQ/L (3.5-5.1); SODIUM LEVEL 141 MEQ/L (136-145); TOTAL PROTEIN 7.6 GM/DL (6.4-8.2)
[2019-09-05] MEDS ORDERED: METOCLOPRAMIDE INJ 10MG/2ML VIAL (J2765 PER 1) IV ONE (11:00)
[2019-09-05] MEDS: GASTROGRAFIN SOLUTION 30ML PO SCH ×2 (11:27→12:11)
[2019-09-05] MEDS ORDERED: ISOVUE-370 76% 100ML VIAL As Ordered ONE (13:08)
[2019-09-05 14:08] LABS: C REACTIVE PROTEIN QUANTITATIV 2.21 MG/DL (0.00-0.30)
[2019-09-05] MEDS ORDERED: CIPR-249 PO (14:27)
[2019-09-05] MEDS ORDERED: FLAG500T PO (14:27)
[2019-09-05] MEDS ORDERED: metroNIDAZOLE (FLAGYL) 500MG TABLET PO ONE (14:30)
[2019-09-05] MEDS ORDERED: CIPROFLOXACIN 500MG TABLET PO ONE (14:30)
--- NOTE | 2019-09-05 14:34 | REP ---
CT ABDOMEN AND PELVIS WITH IV AND ORAL CONTRAST: HISTORY: Bloody diarrhea. Lower abdomen pain. Comparison CT study February 23, 2007. CT CONTRAST DOSE: 100 mL of intravenous Isovue [address] FINDINGS: Preliminary digital groundsman radiograph shows an unremarkable bowel gas pattern. The patient has had laminectomy and fusion L4-S1. The lung bases are clear on axial CT images. The liver and the spleen are normal in size homogeneous in texture. There are two small accessory splenules. No pancreatic lesion is seen. Normal adrenal glands are observed. No abnormality is noted in the gallbladder. Kidneys enhance symmetrically. There are small cortical renal cysts bilaterally. No retroperitoneal mass or adenopathy is observed. Normal caliber abdominal aorta is seen. There is no evidence of free intraperitoneal air. There is a small sliver of fluid in the pelvic cul-de-sac. Uterus is surgically absent. There is mural thickening affecting the distal colon from the splenic flexure through the sigmoid colon. There is no evidence of abscess. There does not appear to be diverticulosis. There is a suture line in the right colon post colon resection. I do not see the appendix. No bony destructive lesion is seen. No abdominal wall defect is observed. Post lumbar spine fusion and laminectomy changes are noted. There is a L5-S1 spondylolisthesis measuring 17 mm, grade 2. IMPRESSION: Enterocolitis picture involving the colon distal to the splenic flexure and through the sigmoid colon. No abscess or free air is seen. There is a small sliver of pelvic cul-de-sac fluid. The uterus is surgically absent. L4-S1 fusion with associated grade 2 L5-S1 spondylolisthesis noted incidentally. Post right colectomy changes. No other acute abnormality. Electronically Signed by Chris Vasquez MD 09/05/2019 02:59 P
[2019-09-05 14:35] VITALS: BP 133/91
[2019-09-05 14:37] LABS: ERYTHROCYTE SEDIMENTATION RATE 5 mm/hr (0-30)
== END 2019-09-05 14:37 | disposition home or self-care (01) ==
LOC: M ED 09:39
DX: K52.9 Noninfective gastroenteritis and colitis, unspecified (principal); Z79.899 Other long term (current) drug therapy; Z79.84 Long term (current) use of oral hypoglycemic drugs; Z88.5 Allergy status to narcotic agent; Z88.8 Allergy status to other drugs, medicaments and biological substances; F17.210 Nicotine dependence, cigarettes, uncomplicated
CPT/HCPCS: 36415; 74177; 80048; 80076; 83690; 85025; 85652; 86140; 86850; 86900; 86901; 87507; 96374; 99284; J2765; Q9963; Q9967

== ENCOUNTER 2022-01-01 10:54 | Emergency (ER) | payer OTHER ==
[~2022-01-01] VITALS: Ht 165.1 cm; Wt 71.8 kg
[~2022-01-01 10:54] MED LIST changes: +ATOR1TAB21 PO; +CELE1CAP7 PO; +CIPR-249 PO; +FLAG500T PO; +HYDR-3719; +LISI20TA33; +METF500T13 PO; +NALO25TA
[2022-01-01 11:50] LABS: HEMATOCRIT 40.7 % (36.0-47.0); HEMOGLOBIN 13.7 g/dl (12.0-15.5); MEAN CORPUSCULAR HEMOGLOBIN 30.4 pg (27.0-33.0); MEAN CORPUSCULAR HGB CONC 33.7 g/dl (32.0-36.5); MEAN CORPUSCULAR VOLUME 90.2 fl (80.0-96.0); PLATELET COUNT, AUTOMATED 274 10^3/uL (150-450); RED BLOOD COUNT 4.51 10^6/uL (4.00-5.40); WHITE BLOOD COUNT 6.3 10^3/uL (4.0-10.0)
[2022-01-01] MEDS ORDERED: LABETALOL 100MG/20ML VIAL IV STA (12:30)
[2022-01-01 12:40] VITALS: BP 163/117
[2022-01-01 13:26] LABS: INR 0.94; PROTHROMBIN TIME 12.8 SECONDS (12.5-14.5)
[2022-01-01 13:27] LABS: PARTIAL THROMBOPLASTIN TIME 38.4 SECONDS (24.8-34.2)
[2022-01-01 13:33] LABS: RSV AMPLIFICATION NEGATIVE (NEGATIVE)
[2022-01-01 13:50] LABS: BLOOD UREA NITROGEN 9 MG/DL (7-18); CALCIUM LEVEL 9.8 MG/DL (8.5-10.1); CARBON DIOXIDE LEVEL 29 MEQ/L (21-32); CHLORIDE LEVEL 109 MEQ/L (98-107); CREATININE FOR GFR 0.75 MG/DL (0.55-1.30); GLOMERULAR FILTRATION RATE > 60.0 (>51); GLUCOSE, FASTING 120 MG/DL (70-100); POTASSIUM SERUM 4.1 MEQ/L (3.5-5.1); SODIUM LEVEL 142 MEQ/L (136-145)
[2022-01-01 13:51] LABS: CPK CREATINE PHOSPHOKINASE 65 U/L (26-192)
[2022-01-01] MEDS ORDERED: PERCOCET 5MG/325MG TAB PO ONE (15:05)
[2022-01-01] MEDS ORDERED: LISI40TA4 PO (15:38)
[2022-01-01] MEDS ORDERED: VITA100093 PO (15:38)
[2022-01-01] MEDS ORDERED: CRAN200C3 PO (15:38)
[2022-01-01] MEDS ORDERED: HOME MED LIST COMPLETE! XX SCH (15:40)
[2022-01-01 15:45] VITALS: BP 132/97
[2022-01-01] MEDS ORDERED: CHLO50TA PO (15:55)
[2022-01-01] MEDS ORDERED: AMLO1TAB24 PO (15:55)
== END 2022-01-01 16:02 | disposition home or self-care (01) ==
LOC: EDBD 10:54 → M ED 10:54
DX: I10 Essential (primary) hypertension (principal); F17.200 Nicotine dependence, unspecified, uncomplicated; E78.5 Hyperlipidemia, unspecified; K21.9 Gastro-esophageal reflux disease without esophagitis; Z88.5 Allergy status to narcotic agent; Z88.6 Allergy status to analgesic agent

== ENCOUNTER 2022-01-25 16:33 | Emergency (ER) | payer OTHER ==
[~2022-01-25] VITALS: Ht 165.1 cm; Wt 70.5 kg
[~2022-01-25 16:33] MED LIST changes: +AMLO1TAB24 PO; +CHLO50TA PO; +CRAN200C3 PO; +LISI40TA4 PO; +VITA100093 PO
[2022-01-25 17:19] LABS: BASO % 0.5 % (0.0-1.0); EOS # 0.1 10^3/uL (0.0-0.5); EOS % 0.9 % (0.0-3.0); HEMATOCRIT 37.5 % (36.0-47.0); HEMOGLOBIN 12.8 g/dl (12.0-15.5); LYMPH # 2.4 10^3/uL (1.5-5.0); LYMPH % 28.3 % (24.0-44.0); MEAN CORPUSCULAR HEMOGLOBIN 29.7 pg (27.0-33.0); MEAN CORPUSCULAR HGB CONC 34.1 g/dl (32.0-36.5); MONO # 0.5 10^3/uL (0.0-0.8); MONO % 5.7 % (2.0-8.0); NEUTROPHILS # 5.5 10^3/uL (1.5-8.5); NEUTROPHILS % 64.2 % (36.0-66.0); PLATELET COUNT, AUTOMATED 301 10^3/uL (150-450); RED BLOOD COUNT 4.31 10^6/uL (4.00-5.40); WHITE BLOOD COUNT 8.5 10^3/uL (4.0-10.0)
[2022-01-25 17:28] LABS: HCG, SERUM QUALITATIVE NEGATIVE (NEGATIVE)
[2022-01-25 17:39] LABS: CK-MB VALUE MASS < 1.0 NG/ML (<3.6); CPK CREATINE PHOSPHOKINASE 88 U/L (26-192); MB/CK RELATIVE INDEX 1.14 (< OR =4)
[2022-01-25 17:49] LABS: ALBUMIN 4.3 GM/DL (3.2-5.2); ALT/SGPT 21 U/L (12-78); BILIRUBIN,DIRECT 0.1 MG/DL (0.0-0.2); BILIRUBIN,TOTAL 0.5 MG/DL (0.2-1.0); BLOOD UREA NITROGEN 16 MG/DL (7-18); CALCIUM LEVEL 9.9 MG/DL (8.5-10.1); CARBON DIOXIDE LEVEL 25 MEQ/L (21-32); CHLORIDE LEVEL 104 MEQ/L (98-107); CREATININE FOR GFR 1.17 MG/DL (0.55-1.30); FREE T4 1.06 NG/DL (0.76-1.46); GLOMERULAR FILTRATION RATE 50.6 (>51); GLUCOSE, FASTING 127 MG/DL (70-100); LIPASE 181 U/L (73-393); NT-PRO BNP 29 PG/ML (<125); POTASSIUM SERUM 3.7 MEQ/L (3.5-5.1); SODIUM LEVEL 140 MEQ/L (136-145); THYROID STIMULATING HORMONE 0.843 uIU/ML (0.358-3.740); TOTAL PROTEIN 7.3 GM/DL (6.4-8.2)
[2022-01-25 19:29] LABS: CK-MB VALUE MASS < 1.0 NG/ML (<3.6); CPK CREATINE PHOSPHOKINASE 85 U/L (26-192); MB/CK RELATIVE INDEX 1.18 (< OR =4)
[2022-01-25 20:45] VITALS: BP 96/61
== END 2022-01-25 21:10 | disposition home or self-care (01) ==
LOC: M ED 16:33
DX: R07.9 Chest pain, unspecified (principal); R00.2 Palpitations; K21.9 Gastro-esophageal reflux disease without esophagitis; I10 Essential (primary) hypertension; E78.5 Hyperlipidemia, unspecified; F17.200 Nicotine dependence, unspecified, uncomplicated; Z88.1 Allergy status to other antibiotic agents; Z88.6 Allergy status to analgesic agent; Z88.5 Allergy status to narcotic agent; Z79.899 Other long term (current) drug therapy

== ENCOUNTER 2022-01-27 18:22 | Inpatient (IN) | payer OTHER ==
[~2022-01-27] VITALS: Ht 165.1 cm; Wt 67.8 kg
[2022-01-27] MEDS ORDERED: KETOROLAC 60MG 2ML VIAL IM ONE (19:35)
[2022-01-27] MEDS ORDERED: ONDANSETRON 4MG ORAL DISINTEGRATING TAB PO ONE (19:35)
[2022-01-27] MEDS ORDERED: NS 1,000 ML IV ONE ×2 (19:35→22:05)
[2022-01-27 20:12] LABS: BASO % 0.2 % (0.0-1.0); EOS % 0.2 % (0.0-3.0); HEMOGLOBIN 13.6 g/dl (12.0-15.5); LYMPH # 1.9 10^3/uL (1.5-5.0); MEAN CORPUSCULAR HEMOGLOBIN 29.8 pg (27.0-33.0); MEAN CORPUSCULAR VOLUME 87.7 fl (80.0-96.0); MONO # 0.9 10^3/uL (0.0-0.8); MONO % 5.4 % (2.0-8.0); NEUTROPHILS # 14.1 10^3/uL (1.5-8.5); NEUTROPHILS % 82.8 % (36.0-66.0); PLATELET COUNT, AUTOMATED 296 10^3/uL (150-450); RED BLOOD COUNT 4.56 10^6/uL (4.00-5.40)
[2022-01-27 21:09] LABS: ALBUMIN 4.5 GM/DL (3.2-5.2); ALT/SGPT 21 U/L (12-78); AMYLASE 72 U/L (25-115); BILIRUBIN,DIRECT < 0.1 MG/DL (0.0-0.2); LIPASE 161 U/L (73-393); TOTAL PROTEIN 7.7 GM/DL (6.4-8.2)
[2022-01-27 21:46] LABS: CK-MB VALUE MASS < 1.0 NG/ML (<3.6); CPK CREATINE PHOSPHOKINASE 118 U/L (26-192); MB/CK RELATIVE INDEX 0.85 (< OR =4)
[2022-01-27] MEDS ORDERED: ONDANSETRON 4MG 2ML VIAL IV ONE (23:40)
[2022-01-28] MEDS ORDERED: HM C500T4 PO (00:02)
[2022-01-28] MEDS ORDERED: CHLO50TA PO (00:02)
[2022-01-28] MEDS ORDERED: HOME MED LIST COMPLETE! XX SCH (00:05)
[2022-01-28] MEDS ORDERED: LevoFLOXacin IV 500 MG in IV 1 EA IV ONE (00:10)
[2022-01-28] MEDS ORDERED: GLUCOSE 4GM CHEW TABLET PO PRN (03:15)
[2022-01-28] MEDS ORDERED: NS 1,000 ML IV SCH (03:15)
[2022-01-28] MEDS ORDERED: GLUCAGON INJ 1MG VIAL SC PRN (03:15)
[2022-01-28] MEDS ORDERED: DEXTROSE 50% 50 ML SYRINGE IV PRN (03:15)
[2022-01-28] MEDS: HYDROMORPHONE HCL 0.5 MG/ 0.5 ML SYRINGE (J1170 PER 1) IV PRN ×4 (04:23→17:04)
[2022-01-28 05:47] LABS: HEMATOCRIT 34.2 % (36.0-47.0); HEMOGLOBIN 11.8 g/dl (12.0-15.5); MEAN CORPUSCULAR HEMOGLOBIN 30.2 pg (27.0-33.0); MEAN CORPUSCULAR HGB CONC 34.5 g/dl (32.0-36.5); MEAN CORPUSCULAR VOLUME 87.5 fl (80.0-96.0); PLATELET COUNT, AUTOMATED 270 10^3/uL (150-450); RED BLOOD COUNT 3.91 10^6/uL (4.00-5.40); WHITE BLOOD COUNT 14.4 10^3/uL (4.0-10.0)
[2022-01-28] MEDS: INSULIN LISPRO (NovoLOG) PER UNIT SC SCH ×3 (06:00→17:03)
[2022-01-28 06:34] LABS: ALBUMIN 3.5 GM/DL (3.2-5.2); ALT/SGPT 18 U/L (12-78); BLOOD UREA NITROGEN 21 MG/DL (7-18); CALCIUM LEVEL 8.2 MG/DL (8.5-10.1); CARBON DIOXIDE LEVEL 22 MEQ/L (21-32); CHLORIDE LEVEL 102 MEQ/L (98-107); CREATININE FOR GFR 0.94 MG/DL (0.55-1.30); GLOMERULAR FILTRATION RATE > 60.0 (>51); GLUCOSE, FASTING 128 MG/DL (70-100); POTASSIUM SERUM 3.3 MEQ/L (3.5-5.1); SODIUM LEVEL 136 MEQ/L (136-145); TOTAL PROTEIN 6.2 GM/DL (6.4-8.2)
[2022-01-28] MEDS: HEPARIN SOD (PORCINE) 5000UNITS/ML 1ML VIAL/SYRINGE SC SCH ×3 (06:50→21:19)
[2022-01-28] MEDS ORDERED: ISOVUE-370 76% 100ML VIAL As Ordered ONE (07:48)
[2022-01-28] MEDS: ONDANSETRON 4MG 2ML VIAL IV PRN ×2 (08:59→17:05)
[2022-01-28] MEDS: NS 1,000 ML IV SCH (13:47)
[2022-01-28 14:09] VITALS: BP 156/82
[2022-01-28] MEDS: CHLORTHALIDONE 25 MG TAB PO SCH (15:56)
[2022-01-28] MEDS ORDERED: SENNA 8.6 MG TAB (SENOKOT) PO PRN (16:05)
[2022-01-28 20:00] VITALS: BP 138/70
[2022-01-28] MEDS: SENNA 8.6 MG TAB (SENOKOT) PO PRN (21:24)
[2022-01-28] MEDS: ACETAMINOPHEN TAB 650MG DOSE (2X325MG) PO PRN (21:25)
[2022-01-29] MEDS: NS 1,000 ML IV SCH (02:44)
[2022-01-29] MEDS: HEPARIN SOD (PORCINE) 5000UNITS/ML 1ML VIAL/SYRINGE SC SCH ×3 (05:17→22:14)
[2022-01-29] MEDS: HYDROMORPHONE HCL 0.5 MG/ 0.5 ML SYRINGE (J1170 PER 1) IV PRN ×4 (05:24→18:10)
[2022-01-29 06:00] VITALS: BP 102/59
[2022-01-29] MEDS: INSULIN LISPRO (NovoLOG) PER UNIT SC SCH ×4 (06:00→17:53)
[2022-01-29 08:26] LABS: BASO % 0.2 % (0.0-1.0); EOS % 0.1 % (0.0-3.0); HEMATOCRIT 34.3 % (36.0-47.0); HEMOGLOBIN 11.6 g/dl (12.0-15.5); LYMPH # 1.6 10^3/uL (1.5-5.0); LYMPH % 9.8 % (24.0-44.0); MEAN CORPUSCULAR HEMOGLOBIN 29.9 pg (27.0-33.0); MEAN CORPUSCULAR HGB CONC 33.8 g/dl (32.0-36.5); MEAN CORPUSCULAR VOLUME 88.4 fl (80.0-96.0); MONO # 0.7 10^3/uL (0.0-0.8); MONO % 4.2 % (2.0-8.0); NEUTROPHILS # 14.1 10^3/uL (1.5-8.5); NEUTROPHILS % 85.2 % (36.0-66.0); PLATELET COUNT, AUTOMATED 259 10^3/uL (150-450); RED BLOOD COUNT 3.88 10^6/uL (4.00-5.40); WHITE BLOOD COUNT 16.5 10^3/uL (4.0-10.0)
[2022-01-29] MEDS ORDERED: LACTULOSE 20 GM/30 ML SYRUP UD PO ONE (09:00)
[2022-01-29] MEDS ORDERED: MIRALAX *UNIT DOSE* 17GM PACKET PO SCH ×2 (09:00)
[2022-01-29 09:15] LABS: BLOOD UREA NITROGEN 8 MG/DL (7-18); CALCIUM LEVEL 8.8 MG/DL (8.5-10.1); CARBON DIOXIDE LEVEL 28 MEQ/L (21-32); CHLORIDE LEVEL 101 MEQ/L (98-107); CREATININE FOR GFR 0.86 MG/DL (0.55-1.30); GLOMERULAR FILTRATION RATE > 60.0 (>51); GLUCOSE, FASTING 221 MG/DL (70-100); POTASSIUM SERUM 3.2 MEQ/L (3.5-5.1); SODIUM LEVEL 137 MEQ/L (136-145)
[2022-01-29] MEDS: SENNA 8.6 MG TAB (SENOKOT) PO PRN (13:24)
[2022-01-29 14:00] VITALS: BP 124/76
[2022-01-29] MEDS: CHLORTHALIDONE 25 MG TAB PO SCH (15:07)
[2022-01-29] MEDS: POTASSIUM CHLORIDE INJ 40 MEQ in LR 1,000 ML IV SCH (15:08)
[2022-01-29] MEDS ORDERED: METOCLOPRAMIDE 5 MG TAB PO PRN (17:10)
[2022-01-29] MEDS ORDERED: DICYCLOMINE 10 MG CAP PO PRN (17:55)
[2022-01-29] MEDS: ONDANSETRON 4MG 2ML VIAL IV PRN (18:10)
[2022-01-29 20:00] VITALS: BP 130/79
[2022-01-29] MEDS: SENNA 8.6 MG TAB (SENOKOT) PO SCH (22:14)
[2022-01-30] MEDS: POTASSIUM CHLORIDE INJ 40 MEQ in LR 1,000 ML IV SCH (05:37)
[2022-01-30] MEDS: HEPARIN SOD (PORCINE) 5000UNITS/ML 1ML VIAL/SYRINGE SC SCH (05:38)
[2022-01-30 06:00] VITALS: BP 121/76
[2022-01-30] MEDS: INSULIN LISPRO (NovoLOG) PER UNIT SC SCH ×2 (06:00)
[2022-01-30 06:11] LABS: BASO # 0.1 10^3/uL (0.0-0.2); BASO % 0.3 % (0.0-1.0); EOS % 0.3 % (0.0-3.0); HEMOGLOBIN 11.7 g/dl (12.0-15.5); LYMPH % 14.2 % (24.0-44.0); MEAN CORPUSCULAR HGB CONC 33.4 g/dl (32.0-36.5); MEAN CORPUSCULAR VOLUME 89.7 fl (80.0-96.0); MONO # 0.8 10^3/uL (0.0-0.8); MONO % 5.4 % (2.0-8.0); NEUTROPHILS # 11.4 10^3/uL (1.5-8.5); NEUTROPHILS % 79.4 % (36.0-66.0); PLATELET COUNT, AUTOMATED 266 10^3/uL (150-450); WHITE BLOOD COUNT 14.3 10^3/uL (4.0-10.0)
[2022-01-30 06:41] LABS: BLOOD UREA NITROGEN 7 MG/DL (7-18); CARBON DIOXIDE LEVEL 29 MEQ/L (21-32); CHLORIDE LEVEL 100 MEQ/L (98-107); CREATININE FOR GFR 0.67 MG/DL (0.55-1.30); GLOMERULAR FILTRATION RATE > 60.0 (>51); GLUCOSE, FASTING 116 MG/DL (70-100); POTASSIUM SERUM 3.3 MEQ/L (3.5-5.1); SODIUM LEVEL 139 MEQ/L (136-145)
[2022-01-30] MEDS ORDERED: POTASSIUM CHLORIDE 10MEQ SR TABLET PO ONE (07:15)
[2022-01-30] MEDS: ACETAMINOPHEN TAB 650MG DOSE (2X325MG) PO PRN (07:57)
[2022-01-30 08:00] VITALS: BP 119/74
[2022-01-30] MEDS ORDERED: MIRALAX *UNIT DOSE* 17GM PACKET PO SCH (09:00)
[2022-01-30] MEDS: SENNA 8.6 MG TAB (SENOKOT) PO SCH (09:56)
[2022-01-30] MEDS ORDERED: POTA-151 PO ×2 (11:21→13:44)
[2022-01-30] MEDS ORDERED: SENN18TA PO ×2 (11:21→13:44)
[2022-01-30] MEDS ORDERED: MIRA1POW3 PO (11:21)
[2022-01-30] MEDS ORDERED: DICY1CAP8 PO (11:21)
[2022-01-30] MEDS ORDERED: MIRA3350 PO (13:44)
[2022-01-30] MEDS ORDERED: DICY10CA13 PO (13:44)
== END 2022-01-30 13:14 | disposition home or self-care (01) | DRG 392 ==
LOC: M ED 18:22 → M ED INP 01-28 03:13 → ENRESERV 01-28 12:52 → M MSPAV 01-28 14:03
PROVIDERS: ADMIT Internal Medicine; ATTEND Internal Medicine
DX: K52.9 Noninfective gastroenteritis and colitis, unspecified (principal); N17.9 Acute kidney failure, unspecified; E11.9 Type 2 diabetes mellitus without complications; I10 Essential (primary) hypertension; E78.5 Hyperlipidemia, unspecified; J45.909 Unspecified asthma, uncomplicated; F17.290 Nicotine dependence, other tobacco product, uncomplicated; Z90.79 Acquired absence of other genital organ(s); Z79.899 Other long term (current) drug therapy; Z88.1 Allergy status to other antibiotic agents; Z88.6 Allergy status to analgesic agent; Z88.5 Allergy status to narcotic agent; Z20.822 Contact with and (suspected) exposure to COVID-19; K59.00 Constipation, unspecified; Z90.49 Acquired absence of other specified parts of digestive tract; E87.6 Hypokalemia; R51.9 Headache, unspecified; E87.20 Acidosis, unspecified; Z79.84 Long term (current) use of oral hypoglycemic drugs

== ENCOUNTER 2022-07-14 14:10 | Emergency (ER) | payer OTHER ==
[~2022-07-14] VITALS: Ht 165.1 cm; Wt 67.2 kg
[~2022-07-14 14:10] MED LIST changes: +DICY10CA13 PO; +DICY1CAP8 PO; +HM C500T4 PO; +MIRA1POW3 PO; +MIRA3350 PO; +POTA-151 PO; +SENN18TA PO
[2022-07-14] MEDS ORDERED: NALO25TA (14:26)
[2022-07-14] MEDS ORDERED: CHLO125TA (14:26)
[2022-07-14] MEDS ORDERED: ROSU5TAB5 (14:26)
[2022-07-14] MEDS ORDERED: METF-838 (14:26)
[2022-07-14 16:25] LABS: BASO # 0.1 10^3/uL (0.0-0.2); BASO % 0.5 % (0.0-1.0); EOS # 0.1 10^3/uL (0.0-0.5); EOS % 0.9 % (0.0-3.0); HEMATOCRIT 38.1 % (36.0-47.0); HEMOGLOBIN 12.6 g/dl (12.0-15.5); LYMPH # 1.7 10^3/uL (1.5-5.0); LYMPH % 17.1 % (24.0-44.0); MEAN CORPUSCULAR HEMOGLOBIN 30.7 pg (27.0-33.0); MEAN CORPUSCULAR HGB CONC 33.1 g/dl (32.0-36.5); MEAN CORPUSCULAR VOLUME 92.7 fl (80.0-96.0); MONO # 0.3 10^3/uL (0.0-0.8); MONO % 3.4 % (2.0-8.0); NEUTROPHILS # 7.7 10^3/uL (1.5-8.5); NEUTROPHILS % 77.9 % (36.0-66.0); PLATELET COUNT, AUTOMATED 254 10^3/uL (150-450); RED BLOOD COUNT 4.11 10^6/uL (4.00-5.40); WHITE BLOOD COUNT 9.9 10^3/uL (4.0-10.0)
[2022-07-14 17:01] LABS: CK-MB VALUE MASS < 1.0 NG/ML (<3.6)
[2022-07-14 17:03] LABS: BLOOD UREA NITROGEN 19 MG/DL (9-23); CALCIUM LEVEL 9.7 MG/DL (8.5-10.1); CARBON DIOXIDE LEVEL 32 MMOL/L (20-31); CHLORIDE LEVEL 105 MMOL/L (98-107); CREATININE FOR GFR 0.72 MG/DL (0.55-1.30); GLOMERULAR FILTRATION RATE > 60.0 (>51); GLUCOSE, FASTING 114 MG/DL (60-100); POTASSIUM SERUM 4.7 MMOL/L (3.5-5.1); SODIUM LEVEL 142 MMOL/L (136-145)
[2022-07-14 17:09] LABS: CPK CREATINE PHOSPHOKINASE 94 U/L (34-145); MB/CK RELATIVE INDEX 1.06 (< OR =4)
[2022-07-14 18:57] LABS: MAGNESIUM LEVEL 2.1 MG/DL (1.8-2.4)
[2022-07-14 19:01] LABS: THYROXINE (T4) 9.1 UG/DL (4.5-10.9)
[2022-07-14 19:02] LABS: FREE THYROXINE INDEX 3.1 % (1.3-4.8); THYROID STIMULATING HORMONE 0.546 uIU/ML (0.55-4.78)
[2022-07-14 20:34] VITALS: BP 120/84
== END 2022-07-14 20:33 | disposition home or self-care (01) ==
LOC: M ED 14:10
DX: R00.2 Palpitations (principal); Z88.6 Allergy status to analgesic agent; Z88.5 Allergy status to narcotic agent; Z88.1 Allergy status to other antibiotic agents; Z79.899 Other long term (current) drug therapy; Z79.84 Long term (current) use of oral hypoglycemic drugs

== ENCOUNTER → 2022-08-25 | Outpatient (CLI) | payer OTHER ==
[~2022-08-25] MED LIST changes: +CHLO125TA; +METF-838; +ROSU5TAB5
== END ==
LOC: M RAD 09:10
PROVIDERS: ATTEND Internal Medicine Cardiovascular Disease
DX: F17.200 Nicotine dependence, unspecified, uncomplicated (principal); I10 Essential (primary) hypertension

== ENCOUNTER → 2022-11-05 | Outpatient (CLI) | payer OTHER ==
[~2022-11-05] MED LIST changes: +DICY-61 PO; -DICY10CA13 PO; +SENN-111 PO; -SENN18TA PO
== END ==
LOC: M PLAIMG 09:32
PROVIDERS: ATTEND Physician Assistant Surgical
DX: M75.02 Adhesive capsulitis of left shoulder (principal)

== ENCOUNTER 2023-02-28 20:08 | Emergency (ER) | payer OTHER ==
[~2023-02-28 20:08] MED LIST changes: -CELE1CAP7 PO; +CELE1CAP99 PO
[2023-02-28 21:09] LABS: BASO % 0.5 % (0.0-1.0); EOS # 0.2 10^3/uL (0.0-0.5); EOS % 2.5 % (0.0-3.0); HEMATOCRIT 37.8 % (36.0-47.0); HEMOGLOBIN 12.7 g/dl (12.0-15.5); LYMPH # 2.9 10^3/uL (1.5-5.0); LYMPH % 45.2 % (24.0-44.0); MEAN CORPUSCULAR HEMOGLOBIN 30.5 pg (27.0-33.0); MEAN CORPUSCULAR HGB CONC 33.6 g/dl (32.0-36.5); MEAN CORPUSCULAR VOLUME 90.9 fl (80.0-96.0); MONO # 0.4 10^3/uL (0.0-0.8); NEUTROPHILS % 45.6 % (36.0-66.0); PLATELET COUNT, AUTOMATED 249 10^3/uL (150-450); RED BLOOD COUNT 4.16 10^6/uL (4.00-5.40); WHITE BLOOD COUNT 6.5 10^3/uL (4.0-10.0)
[2023-02-28 22:10] LABS: BLOOD UREA NITROGEN 17 MG/DL (9-23); CALCIUM LEVEL 9.3 MG/DL (8.5-10.1); CARBON DIOXIDE LEVEL 26 MMOL/L (20-31); CHLORIDE LEVEL 109 MMOL/L (98-107); CK-MB VALUE MASS < 1.0 NG/ML (<3.6); CREATININE FOR GFR 0.66 MG/DL (0.55-1.30); GLOMERULAR FILTRATION RATE > 60.0 (>51); GLUCOSE, FASTING 150 MG/DL (60-100); POTASSIUM SERUM 3.9 MMOL/L (3.5-5.1); SODIUM LEVEL 143 MMOL/L (136-145)
[2023-02-28 22:12] LABS: CPK CREATINE PHOSPHOKINASE 99 U/L (34-145); MB/CK RELATIVE INDEX 1.01 (< OR =4)
[2023-02-28 22:44] LABS: LIPASE 49 U/L (12-53)
[2023-02-28 22:46] LABS: ALBUMIN 4.3 G/DL (3.2-5.2); ALKALINE PHOSPHATASE 77 U/L (46-116); ALT/SGPT 16 U/L (7.0-40); AST/SGOT 12 U/L (<34); BILIRUBIN,DIRECT 0.2 MG/DL (<0.4); BILIRUBIN,TOTAL 0.6 MG/DL (0.3-1.2); TOTAL PROTEIN 6.8 G/DL (5.7-8.2)
[2023-02-28 22:52] LABS: CK-MB VALUE MASS < 1.0 NG/ML (<3.6)
[2023-02-28 22:53] LABS: CPK CREATINE PHOSPHOKINASE 84 U/L (34-145); MB/CK RELATIVE INDEX 1.19 (< OR =4)
[2023-02-28 23:45] VITALS: TEMP 98.3
[2023-03-01 00:15] VITALS: BP 130/84; O2SAT 97
== END 2023-03-01 00:30 | disposition home or self-care (01) ==
LOC: M ED 20:08
DX: R10.13 Epigastric pain (principal); E11.9 Type 2 diabetes mellitus without complications; I10 Essential (primary) hypertension; E78.5 Hyperlipidemia, unspecified; K80.20 Calculus of gallbladder without cholecystitis without obstruction; F17.290 Nicotine dependence, other tobacco product, uncomplicated; Z79.84 Long term (current) use of oral hypoglycemic drugs; Z79.899 Other long term (current) drug therapy; Z88.0 Allergy status to penicillin; Z88.5 Allergy status to narcotic agent; Z88.8 Allergy status to other drugs, medicaments and biological substances

== ENCOUNTER 2024-04-09 13:19 | Emergency (ER) | payer OTHER ==
[~2024-04-09 13:19] MED LIST changes: -MIRA1POW3 PO; +MIRA33506 PO; +ROSU5TAB49; -ROSU5TAB5; -SENN-111 PO; +SENN-165 PO
[2024-04-09] MEDS ORDERED: DULO1CAP4 (13:29)
[2024-04-09] MEDS ORDERED: CLON0.1D3 (13:29)
[2024-04-09 14:00] LABS: BASO % 0.4 % (0.0-1.0); EOS # 0.1 10^3/uL (0.0-0.5); HEMATOCRIT 38.8 % (36.0-47.0); HEMOGLOBIN 13.2 g/dl (12.0-15.5); LYMPH # 2.1 10^3/uL (1.5-5.0); LYMPH % 30.3 % (24.0-44.0); MEAN CORPUSCULAR HEMOGLOBIN 30.3 pg (27.0-33.0); MEAN CORPUSCULAR VOLUME 89.2 fl (80.0-96.0); MONO # 0.3 10^3/uL (0.0-0.8); MONO % 3.8 % (2.0-8.0); NEUTROPHILS # 4.4 10^3/uL (1.5-8.5); NEUTROPHILS % 63.2 % (36.0-66.0); PLATELET COUNT, AUTOMATED 268 10^3/uL (150-450); RED BLOOD COUNT 4.35 10^6/uL (4.00-5.40)
[2024-04-09] MEDS: LIDOCAINE VISCOUS 2% SOLN 15ML UDC PO ONE (14:06)
[2024-04-09] MEDS: MAALOX 30 ML SUSP *UDC PO ONE (14:06)
[2024-04-09] MEDS: SUCRALFATE SUSP 1GM/10ML UD PO ONE (14:06)
[2024-04-09 14:50] LABS: CK-MB VALUE MASS < 1.0 NG/ML (<3.6); LIPASE 53 U/L (12-53)
[2024-04-09 14:52] LABS: ALBUMIN 4.3 G/DL (3.2-5.2); ALKALINE PHOSPHATASE 81 U/L (35-104); ALT/SGPT 30 U/L (7.0-40); AST/SGOT 23 U/L (<34); BILIRUBIN,DIRECT 0.3 MG/DL (<0.4); BILIRUBIN,TOTAL 1.1 MG/DL (0.3-1.2); BLOOD UREA NITROGEN 13 MG/DL (9-23); CALCIUM LEVEL 9.1 MG/DL (8.3-10.6); CARBON DIOXIDE LEVEL 23 MMOL/L (20-31); CHLORIDE LEVEL 110 MMOL/L (98-107); CREATININE FOR GFR 0.83 MG/DL (0.55-1.30); GLOMERULAR FILTRATION RATE > 60.0 (>45); GLUCOSE, FASTING 216 MG/DL (74-106); POTASSIUM SERUM 4.1 MMOL/L (3.5-5.1); SODIUM LEVEL 146 MMOL/L (136-145); TOTAL PROTEIN 6.9 G/DL (5.7-8.2)
[2024-04-09 14:53] LABS: THYROID STIMULATING HORMONE 0.566 uIU/ML (0.55-4.78)
[2024-04-09 14:54] LABS: FREE T4 1.16 NG/DL (0.89-1.76)
[2024-04-09 14:59] LABS: CPK CREATINE PHOSPHOKINASE 84 U/L (34-145); MB/CK RELATIVE INDEX 1.19 (< OR =4)
[2024-04-09 15:48] LABS: CK-MB VALUE MASS < 1.0 NG/ML (<3.6)
[2024-04-09 15:50] LABS: CPK CREATINE PHOSPHOKINASE 73 U/L (34-145); MB/CK RELATIVE INDEX 1.36 (< OR =4)
[2024-04-09] MEDS ORDERED: PROT1TAB2 PO (16:09)
[2024-04-09 16:28] VITALS: BP 151/97; TEMP 98.1; O2SAT 94
== END 2024-04-09 16:43 | disposition home or self-care (01) ==
LOC: M ED 13:19
DX: K21.00 Gastro-esophageal reflux disease with esophagitis, without bleeding (principal); E11.9 Type 2 diabetes mellitus without complications; I10 Essential (primary) hypertension; E78.5 Hyperlipidemia, unspecified; M54.50 Low back pain, unspecified

== ENCOUNTER 2025-02-03 23:50 | Emergency (ER) | payer OTHER ==
[~2025-02-03] VITALS: Ht 165.1 cm; Wt 61.1 kg
[~2025-02-03 23:50] MED LIST changes: +CLON0.1D3; +CRAN500T4 PO; +DULO1CAP4; -HM C500T4 PO; +LISI40TA10 PO; -LISI40TA4 PO; +PROT1TAB2 PO
[2025-02-03 23:54] VITALS: TEMP 98.6
[2025-02-04 00:19] VITALS: BP 219/136
[2025-02-04] MEDS: dilTIAZem 25 MG/5 ML VIAL IV STA (00:19)
[2025-02-04 00:42] LABS: BASO # 0.0 10^3/uL (0.0-0.2); BASO % 0.5 % (0.0-1.0); EOS # 0.2 10^3/uL (0.0-0.5); EOS % 2.1 % (0.0-3.0); LYMPH # 3.5 10^3/uL (1.5-5.0); LYMPH % 47.1 % (24.0-44.0); MONO # 0.5 10^3/uL (0.0-0.8); MONO % 6.7 % (2.0-8.0); NEUTROPHILS # 3.3 10^3/uL (1.5-8.5); NEUTROPHILS % 43.5 % (36.0-66.0); PLATELET COUNT, AUTOMATED 263 10^3/uL (150-450)
[2025-02-04 01:06] LABS: INR 0.87
[2025-02-04 01:07] LABS: ALT/SGPT 19 U/L (7.0-40); AST/SGOT 28 U/L (<34); CALCIUM LEVEL 9.8 MG/DL (8.3-10.6); CARBON DIOXIDE LEVEL 25 MMOL/L (20-31); CHLORIDE LEVEL 102 MMOL/L (98-107); CK-MB VALUE MASS 4.3 NG/ML (<3.6); CREATININE FOR GFR 0.73 MG/DL (0.55-1.30); GLOMERULAR FILTRATION RATE > 90.0 (>45); POTASSIUM SERUM 3.5 MMOL/L (3.5-5.1); SODIUM LEVEL 141 MMOL/L (136-145)
[2025-02-04 01:09] LABS: MAGNESIUM LEVEL 2.0 MG/DL (1.8-2.4)
[2025-02-04 01:13] LABS: CPK CREATINE PHOSPHOKINASE 242 U/L (34-145); MB/CK RELATIVE INDEX 1.77 (< OR =4)
[2025-02-04 01:14] LABS: FREE T4 1.44 NG/DL (0.89-1.76)
[2025-02-04] MEDS: NS (Normal Saline) 0.9% 1,000 ML IV ONE (01:28)
[2025-02-04 02:57] LABS: CK-MB VALUE MASS 3.1 NG/ML (<3.6); CPK CREATINE PHOSPHOKINASE 207.0 U/L (34-145); MB/CK RELATIVE INDEX 1.49 (< OR =4)
[2025-02-04] MEDS ORDERED: ELIQ5TAB PO (05:40)
[2025-02-04 05:45] VITALS: O2SAT 99
[2025-02-04] MEDS: APIXABAN 5 MG TAB PO ONE (05:49)
[2025-02-04 05:51] VITALS: BP 124/59
== END 2025-02-04 06:00 | disposition home or self-care (01) ==
LOC: M ED 23:50
DX: I48.91 Unspecified atrial fibrillation (principal); E11.9 Type 2 diabetes mellitus without complications; I10 Essential (primary) hypertension; K21.9 Gastro-esophageal reflux disease without esophagitis; Z88.1 Allergy status to other antibiotic agents; Z88.5 Allergy status to narcotic agent; Z88.6 Allergy status to analgesic agent; Z79.899 Other long term (current) drug therapy; R94.31 Abnormal electrocardiogram [ECG] [EKG]
CPT/HCPCS: 71045; 80048; 80076; 82550; 82553; 83605; 83690; 83735; 84145; 84439; 84443; 84484; 85025; 85610; 85730; 93005; 93041; 94760; 96361; 96374; 99285; J1163

== ENCOUNTER 2025-03-08 06:38 | Day surgery (SDC) | payer OTHER ==
[~2025-03-08] VITALS: Ht 162.6 cm; Wt 56.9 kg
[~2025-03-08 06:38] MED LIST changes: +ELIQ5TAB PO; +HYDR-3716 PO; +LOSA50TA28 PO; +LUBI24CA32 PO; +MAGN400C2 PO; +OMEP1CAP73 PO; +SENN8.6T58 PO
[2025-03-08 08:57] VITALS: TEMP 97.5
[2025-03-08 09:11] VITALS: BP 138/79; O2SAT 99
== END 2025-03-08 09:20 | disposition home or self-care (01) ==
LOC: M OPP 06:38
PROVIDERS: ATTEND Surgery
DX: Z12.11 Encounter for screening for malignant neoplasm of colon (principal); I48.91 Unspecified atrial fibrillation; Z88.1 Allergy status to other antibiotic agents; Z88.5 Allergy status to narcotic agent; Z88.6 Allergy status to analgesic agent; Z79.01 Long term (current) use of anticoagulants; Z79.84 Long term (current) use of oral hypoglycemic drugs; Z79.891 Long term (current) use of opiate analgesic; Z79.899 Other long term (current) drug therapy; F17.290 Nicotine dependence, other tobacco product, uncomplicated; Z98.0 Intestinal bypass and anastomosis status